=== PATIENT | female | born 1975 | race Caucasian/White ===

== ENCOUNTER 2019-06-17 08:51 | Outpatient (CLI) | payer BC, SELFPAY ==
--- NOTE | 2019-06-17 09:04 | MM_ITS ---
WS: [id number] BILATERAL DIGITAL SCREENING MAMMOGRAM WITH CAD CLINICAL INFORMATION: SCREENING HISTORY: Screening mammogram. No current complaints. COMPARISON: May 07, 2018 TECHNIQUE: Bilateral CC and MLO. FINDINGS: The breast are composed of extremely dense tissue, which can limit the detection of small underlying mass lesions. No suspicious focal mass, asymmetry, calcifications, or architectural distortion. No ev idence of malignancy. MM/[id number] IMPRESSION: BI-RADS: 1-Negative FOLLOW UP: 1 Year Follow-up Recommend return to annual screening mammography.
== END 2019-06-17 08:52 | disposition home or self-care (01) ==
LOC: RADSHAW 08:55
PROVIDERS: Family Provider Family Medicine; PCP Nurse Practitioner Family; Visit Provider Nurse Practitioner Family
DX: Z12.31 Encounter for screening mammogram for malignant neoplasm of breast (principal)
CPT/HCPCS: 77067

== ENCOUNTER → 2020-01-21 15:15 | Outpatient (BNVA) | payer BC, SELFPAY | PROVIDERS: Family Provider Family Medicine; PCP Nurse Practitioner Family; Visit Provider Nurse Practitioner Women's Health | DX: Z01.419 Encounter for gynecological examination (general) (routine) without abnormal findings (principal) | CPT/HCPCS: 88175 ==

== ENCOUNTER 2020-08-19 07:26 | Outpatient (CLI) | payer BC, SELFPAY ==
--- NOTE | 2020-08-19 08:02 | MM_ITS ---
WS: [id number] BILATERAL SCREENING DIGITAL MAMMOGRAM WITH CAD HISTORY: SCREENING COMPARISON: 06/17/2019 and 05/07/2018 Bilateral CC and MLO views submitted. Computer aided detection analyzed. Breast composition: The breasts are extremely dense, which lowers the sensitivity of mammography. No suspicious masses, microcalcifications or architectural distortion. MM/[id number] IMPRESSION: BI-RADS: 1-Negative FOLLOW UP: 1 Year Follow-up
== END 2020-08-19 07:27 | disposition home or self-care (01) ==
LOC: RADSHAW 07:28
PROVIDERS: PCP Nurse Practitioner Family; Visit Provider Nurse Practitioner Women's Health
DX: Z12.31 Encounter for screening mammogram for malignant neoplasm of breast (principal)
CPT/HCPCS: 77067

== ENCOUNTER 2021-09-05 13:34 | Outpatient (CLI) | payer BC, SELFPAY ==
--- NOTE | 2021-09-05 13:42 | MM_ITS ---
WS: [id number] BILATERAL 3D TOMOSYNTHESIS DIGITAL SCREENING MAMMOGRAPHY WITH CAD CLINICAL INFORMATION: SCREENING HISTORY: Screening mammogram. No current complaints. COMPARISON: August 19, 2020 TECHNIQUE: Bilateral CC and MLO views. FINDINGS: The breasts are composed of heterogeneous fibroglandular density tissue, which can limit the detectio n of small underlying mass lesions. No suspicious mass, asymmetry, calcifications, or architectural d istortion. No evidence of malignancy. MM/[place] [id number] IMPRESSION: BI-RADS: 1-Negative FOLLOW UP: 1 Year Follow-up Recommend return to annual screening mammography.
== END 2021-09-05 13:35 | disposition home or self-care (01) ==
LOC: RADSHAW 13:34
PROVIDERS: PCP Nurse Practitioner Family; Visit Provider Nurse Practitioner Women's Health
DX: Z12.31 Encounter for screening mammogram for malignant neoplasm of breast (principal)
CPT/HCPCS: 77063; 77067

== ENCOUNTER → 2022-01-25 09:38 | Outpatient (BNVA) | payer BC, SELFPAY | PROVIDERS: PCP Nurse Practitioner Family; Visit Provider Nurse Practitioner Women's Health | DX: N91.2 Amenorrhea, unspecified (principal) | CPT/HCPCS: 82670; 83001 ==

== ENCOUNTER 2022-09-07 12:23 | Outpatient (CLI) | payer BC, SELFPAY ==
--- NOTE | 2022-09-07 13:16 | MM_ITS ---
WS: [id number] BILATERAL 3D TOMOSYNTHESIS DIGITAL SCREENING MAMMOGRAPHY WITH CAD CLINICAL INFORMATION: SCREENING HISTORY: Screening mammogram. No current complaints. COMPARISON: September 05, 2021 TECHNIQUE: Bilateral CC and MLO views. FINDINGS: The breasts are composed of heterogeneous fibroglandular density tissue, which can limit the detectio n of small underlying mass lesions. New punctate and amorphous loosely clustered calcifications near the axillary tail LEFT breast. Recom mend exaggerated CC and spot magnification views in further evaluation. This may represent benign mil k of calcium. RIGHT breast is unremarkable. MM/[place] [id number] IMPRESSION: BI-RADS: 0-Incomplete: Need additional imaging evaluation FOLLOW UP: Need Additional Imaging
== END 2022-09-07 12:24 | disposition home or self-care (01) ==
LOC: RAD 12:28
PROVIDERS: PCP Nurse Practitioner Family; Visit Provider Nurse Practitioner Family
DX: Z12.31 Encounter for screening mammogram for malignant neoplasm of breast (principal)
CPT/HCPCS: 77063; 77067

== ENCOUNTER 2022-09-28 13:27 | Outpatient (CLI) | payer BC, SELFPAY ==
--- NOTE | 2022-09-28 13:48 | MM_ITS ---
WS: [id number] LEFT 3D TOMOSYNTHESIS DIGITAL MAMMOGRAPHY WITH CAD CLINICAL INFORMATION: ABNORMAL MAMM COMPARISON: September 07, 2022 TECHNIQUE: 3 views of the left breast were obtained. FINDINGS: The left breast is composed of heterogeneous fibroglandular density tissue, which can limit the detec tion of small underlying mass lesions. Again seen are the punctate and amorphous loosely clustered calcifications near the axillary tail LEF T breast new from 2021. These are persistent today on the spot magnification views. Some of these lay er on the ML view compatible with milk of calcium however some are heterogeneous and indeterminate. R ecommend stereotactic guided biopsy for further evaluation. MM/[id number] IMPRESSION: BI-RADS: 4-Suspicious Finding-Biopsy Should Be Considered FOLLOW UP: Stereotactic Biopsy Recommended Recommend stereotactic guided biopsy for further evaluation of the new LEFT pérez ast calcifications.
== END 2022-09-28 13:28 | disposition home or self-care (01) ==
PROVIDERS: PCP Nurse Practitioner Family; Visit Provider Nurse Practitioner Family
DX: R92.8 Other abnormal and inconclusive findings on diagnostic imaging of breast (principal)
CPT/HCPCS: 77061; G0279

== ENCOUNTER 2022-10-24 12:07 | Outpatient (CLI) | payer BC, SELFPAY ==
--- NOTE | 2022-10-24 12:48 | MM_ITS ---
WS: [id number] STEREOTACTIC LEFT BREAST BIOPSY WITH VACUUM ASSISTANCE. History: Heterogeneous LEFT breast calcifications. Biopsy recommended for suspicious calcifications. Comparison: September 28, 2022 Procedure, risks, and complications were discussed the patient who agreed to proceed. Prior imaging w as reviewed. Cluster of calcifications within the left breast are localized. Stereotactic imaging was performed. P atient was prepped and draped in usual sterile fashion. After 1% lidocaine, calcifications were targe marcella stereotactically in the LEFT breast. Small incision was made. Needle advanced into the cluster of calcifications LEFT breast with imaging demonstrating appropriate position relative to the calcifica tions. Multiple vacuum-assisted core biopsies were obtained. Postprocedure imaging demonstrates calci fications within the biopsy specimen. The biopsy cavity was lavaged. Titanium clip was placed at the biopsy site. Postprocedure imaging dem onstrates clip in good position. No immediate complications. MM/[id number] IMPRESSION: 1. Uncomplicated vacuum-assisted stereotactic biopsy of calcifications in the LEFT breast. 2. 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 3. Recommend BREAST SURGERY consultation for further evaluation 4. Ultrasound could be obtained of the biopsy site to evaluate for underlying mass to target with wire localization Pathology: A. Breast, left, 2 o'clock , stereotactic biopsy: - Invasive ductal carcinoma. - [place] Pack grade 3 (score 8). 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 - Multiple microcalcifications identified. - Breast profile has been performed and will be reported separately. BI-RADS 5 BREAST CONSULTATION RECOMMENDED Discussed with MARYANN Goncalves at 10/31/2022 9:05 AM.
--- NOTE | 2022-10-24 12:48 | MM_ITS ---
WS: [id number] STEREOTACTIC LEFT BREAST BIOPSY WITH VACUUM ASSISTANCE. History: Heterogeneous LEFT breast calcifications. Biopsy recommended for suspicious calcifications. Comparison: September 28, 2022 Procedure, risks, and complications were discussed the patient who agreed to proceed. Prior imaging w as reviewed. Cluster of calcifications within the left breast are localized. Stereotactic imaging was performed. P atient was prepped and draped in usual sterile fashion. After 1% lidocaine, calcifications were targe marcella stereotactically in the LEFT breast. Small incision was made. Needle advanced into the cluster of calcifications LEFT breast with imaging demonstrating appropriate position relative to the calcifica tions. Multiple vacuum-assisted core biopsies were obtained. Postprocedure imaging demonstrates calci fications within the biopsy specimen. The biopsy cavity was lavaged. Titanium clip was placed at the biopsy site. Postprocedure imaging dem onstrates clip in good position. No immediate complications. MM/[id number] IMPRESSION: 1. Uncomplicated vacuum-assisted stereotactic biopsy of calcifications in the LEFT breast. 2. 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 3. Recommend BREAST SURGERY consultation for further evaluation 4. Ultrasound could be obtained of the biopsy site to evaluate for underlying mass to target with wire localization Pathology: A. Breast, left, 2 o'clock , stereotactic biopsy: - Invasive ductal carcinoma. - [place] Pack grade 3 (score 8). 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 - Multiple microcalcifications identified. - Breast profile has been performed and will be reported separately. BI-RADS 5 BREAST CONSULTATION RECOMMENDED Discussed with MARYANN Goncalves at 10/31/2022 9:05 AM.
[2022-10-31 08:02] LABS: Breast Profile ER,PR,HER2,Ki-6 See Report
== END 2022-10-24 12:08 | disposition home or self-care (01) ==
PROVIDERS: PCP Nurse Practitioner Family; Visit Provider Nurse Practitioner Family
DX: R92.8 Other abnormal and inconclusive findings on diagnostic imaging of breast (principal); C50.412 Malignant neoplasm of upper-outer quadrant of left female breast
CPT/HCPCS: 19081; 77065; 88305; 88361; 88374

== ENCOUNTER → 2023-03-01 11:00 | Outpatient (BNVA) | payer BC, SELFPAY | PROVIDERS: PCP Nurse Practitioner Family; Visit Provider Nurse Practitioner Women's Health | DX: Z01.419 Encounter for gynecological examination (general) (routine) without abnormal findings (principal); C50.919 Malignant neoplasm of unspecified site of unspecified female breast | CPT/HCPCS: 87624 ==

== ENCOUNTER 2023-11-14 08:23 | Outpatient (RCR) | payer BC, SELFPAY | END 2023-12-09 23:59 | disposition home or self-care (01) | LOC: SPT 08:23 | PROVIDERS: Visit Provider Physician Assistant | DX: C50.912 Malignant neoplasm of unspecified site of left female breast (principal) | CPT/HCPCS: 97110; 97161 ==

== ENCOUNTER 2023-12-10 06:00 | Outpatient (RCR) | payer BC, SELFPAY | END 2024-01-09 23:59 | disposition home or self-care (01) | LOC: SPT 06:00 | PROVIDERS: Visit Provider Physician Assistant | DX: C50.912 Malignant neoplasm of unspecified site of left female breast (principal) | CPT/HCPCS: 97110 ==

== ENCOUNTER 2024-01-10 06:00 | Outpatient (RCR) | payer BC, SELFPAY | END 2024-02-09 23:59 | disposition home or self-care (01) | LOC: SPT 06:00 | PROVIDERS: Visit Provider Physician Assistant | DX: C50.912 Malignant neoplasm of unspecified site of left female breast (principal) | CPT/HCPCS: 97110 ==

== ENCOUNTER 2024-02-10 06:00 | Outpatient (RCR) | payer BC, SELFPAY | END 2024-03-10 23:59 | disposition home or self-care (01) | LOC: SPT 06:00 | PROVIDERS: Visit Provider Physician Assistant | DX: C50.912 Malignant neoplasm of unspecified site of left female breast (principal); R53.1 Weakness | CPT/HCPCS: 97110 ==

== ENCOUNTER 2024-03-11 06:00 | Outpatient (RCR) | payer BC, SELFPAY | END 2024-03-28 23:59 | disposition home or self-care (01) | LOC: SPT 06:00 | PROVIDERS: Visit Provider Physician Assistant | DX: M62.81 Muscle weakness (generalized) (principal); C50.912 Malignant neoplasm of unspecified site of left female breast | CPT/HCPCS: 97110 ==